=== PATIENT | female | born 1995 | race Two or more races ===

== ENCOUNTER 2024-05-07 21:26 | Emergency (ER) | payer MEDICAID, OTHER ==
[~2024-05-07] VITALS: Ht 167.6 cm; Wt 63.6 kg
[2024-05-07] MEDS: SODIUM CHLORIDE 0.9% 1,000 ML IV ONE (22:00)
--- NOTE | 2024-05-07 22:11 | ED.PDOC ---
History of Present Illness HPI Comments 28 year old female brought in by EMS presents to the ED with a chief complaint of overdose onset today. Per EMS, patient was found unconscious at home on bathroom floor, last seen well was about 15 minutes prior. EMS gave patient 2mg Narcan and about 5-10 minutes after patient was A&O x4. Patient states only drug used was marijuana. Per EMS, patient's sibling was also found unconsciousness with a foil containing Fentanyl. Denies any past medical history. Denies chest pain, shortness of breath, dizziness. No other symptoms or modifying factors present at this time. Patient denies any intent to hurt herself. Chief Complaint: Overdose Time Seen by MD: 21:56 Reviewed Notes: Medications, Allergies Allergies: Coded Allergies: NO KNOWN ALLERGIES (Unverified , 05/07/24) Home Meds Active Scripts Naloxone HCl (Narcan) 4 Mg/0.1 Ml Spr, 2 SPRAYS NA PRN PRN, #1 BOTTLE Prov:ALEX THAO MD 05/08/24 Cephalexin Monohydrate (Cephalexin) 500 Mg Cap, 1 CAP PO QID for 10 Days, #40 CAP Prov:ALEX THAO MD 05/08/24 Information Source: Patient, Emergency Med Personnel Mode of Arrival: EMS Severity: Moderate Timing: Hours Duration: Since onset Prehospital treatment: Other (Narcan 2mg ) Past Medical History PAST MEDICAL HISTORY: Denies Surgical History: Denies all surgeries PROP WORKER History: No Pertinent PROP WORKER History Family History Family History: Unknown Social History Smoker: Unknown Alcohol: Unknown Drugs: Marijuana, Other Lives In: Home Constitutional: denies: chills, diaphoresis, fatigue, fever, malaise, sweats, weakness, others EENTM: denies: blurred vision, double vision, ear bleeding, ear discharge, ear drainage, ear pain, ear ringing, eye pain, eye redness, hearing loss, mouth pain, mouth swelling, nasal discharge, nose bleeding, nose congestion, nose pain, photophobia, tearing, throat pain, throat swelling, voice changes, others Respiratory: denies: cough, hemoptysis, orthopnea, SOB at rest, shortness of breath, SOB with excertion, stridor, wheezing, others Cardiovascular: denies: chest pain, dizzy spells, diaphoresis, Dyspnea on exertion, edema, irregular heart beat, left arm pain, lightheadedness, palpitations, PND, syncope, others Gastrointestinal: denies: abdomen distended, abdominal pain, blood streaked bowels, constipated, diarrhea, dysphagia, difficulty swallowing, hematemesis, melena, nausea, poor appetite, poor fluid intake, rectal bleeding, rectal pain, vomiting, others Genitourinary: denies: abnormal vagina bleeding, burning, dyspareunia, dysuria, flank pain, frequency, hematuria, incontinence, pain, , vagina discharge, urgency, others Neurological: reports: fainting, others (overdose); denies: dizziness, headache, left sided numbness, left sided weakness, numbness, paresthesia, pre- existing deficit, right sided numbness, right sided weakness, seizure, speech problems, tingling, tremors, weakness Musculoskeletal: denies: back pain, gout, joint pain, joint swelling, muscle pain, muscle stiffness, neck pain, others Integumetry: denies: bruises, change in color, change in hair/nails, dryness, laceration, lesions, lumps, rash, wounds, others Allergic/Immunocompromised: denies: Difficulty Healing, Frequent Infections, Hives, Itching, others Hematologic/Lymphatic: denies: anemia, blood clots, easy bleeding, easy bruising, swollen glands, others Endocrine: denies: excessive hunger, excessive sweating, excessive thirst, excessive urination, flushing, intolerance to cold, intolerance to heat, unexplained weight gain, unexplained weight loss, others Psychiatric: denies: anxiety, bipolar disorder, depression, hopeless, panic disorder, schizophrenia, sleepless, suicidal, others All Other Systems: Reviewed and Negative Physical Exam General Appearance: No Apparent Distress HEENT: Other (Pupils symmetric, no facial asymmetry, moist mucous membranes.) Neck: Full Range of Motion, Non-Tender, Normal Inspection, Supple Respiratory: Lungs Clear, No Accessory Muscle Use, No Respiratory Distress, Normal Breath Sounds Cardiovascular: No Edema, No JVD, Regular Rate/Rhythm Breast Exam: Deferred Gastrointestinal: Non Tender, Soft Genitalia: Deferred Pelvic: Deferred Rectal: Deferred Extremities: Normal inspection, Normal range of motion, Non-tender, No pedal edema Neurologic: Alert (Oriented x4), Normal Affect, Normal Mood, Other (Moves all extremities with adequate strength and tone. No gross focal deficit.) Cerebellar Function: NOT DONE Reflexes: NOT DONE Skin: Dry, Normal Color, Warm Lymphatic: NOT DONE Was a procedure done? Was a procedure done?: No Differential Dx Considerations may include: Opiate overdose, syncope, seizure, alcohol overdose, among others X-Ray, Labs, Meds, VS Vital Signs Date Time Temp Pulse Resp B/P (MAP) Pulse Ox O2 Delivery O2 Flow Rate FiO2 05/08/24 00:00 91 05/07/24 23:41 95 16 96/55 (69) 96 05/07/24 23:36 96 16 100 Room Air* 0 21 05/07/24 22:25 98.8 102 20 95/59 (71) 100 98.8 05/07/24 21:33 97.2 108 14 140/91 (107) 97 Lab Test 05/07/24 23:05 05/07/24 22:04 Range/Units Urine Color Colorless Yellow Urine Clarity Turbid H Clear Urine pH 6.0 5.0-9.0 Urine Specific [place]dy 1.021 1.001-1.035 Urine Protein 1+ H Negative Urine Ketones Trace Negative Urine Blood Negative Negative /uL Urine Nitrite Negative Negative Urine Bilirubin Negative Negative Urine Urobilinogen Normal Negative mg/dL Urine Leukocyte Esterase 3+ Negative /uL Urine RBC 4 0 - 4 /hpf Urine WBC 19 0 - 5 /hpf Urine Squamous Epithelial Cells Mod <5 /hpf Urine Amorphous Crystals Few None Seen /hpf Urine Bacteria None seen None Seen /hpf Urine Mucus Few None Seen Urine Glucose 1+ H Normal mg/dL Urine Opiates Screen Neg NEGATIVE Urine Fentanyl Screen Pos NEGATIVE Urine Barbiturates Screen Neg NEGATIVE Urine Phencyclidine Screen Neg NEGATIVE Urine Amphetamines Screen Neg NEGATIVE Urine Benzodiazepines Screen Neg NEGATIVE Urine Cocaine Screen Neg NEGATIVE Urine Cannabinoids Screen Pos NEGATIVE White Blood Count 19.6 H 4.4-10.8 10^3/uL Red Blood Count 5.04 4.0-5.20 10^6/uL Hemoglobin 14.2 12.2-16.2 g/dL Hematocrit 43.7 36.0-46.0 % Mean Corpuscular Volume 86.7 80.0-100.0 fL Mean Corpuscular Hemoglobin 28.1 28.0-32.0 pg Mean Corpuscular Hemoglobin Concent 32.5 32.0-36.0 g/dL Red Cell Distribution Width 14.9 H 11.8-14.3 % Platelet Count 223 140-450 10^3/uL Mean Platelet Volume 9.7 6.9-10.8 fL Neutrophils (%) (Auto) 89.0 H 37.0-80.0 % Lymphocytes (%) (Auto) 4.0 L 10.0-50.0 % Monocytes (%) (Auto) 6.0 0.0-12.0 % Eosinophils (%) (Auto) 0.1 0.0-7.0 % Basophils (%) (Auto) 0.9 0.0-2.0 % Neutrophils # (Auto) 17.5 H 1.6-8.6 10 ^3/uL Lymphocytes # (Auto) 0.8 0.4-5.4 10 ^3/uL Monocytes # (Auto) 1.2 0-1.3 10 ^3/uL Eosinophils # (Auto) 0 0-0.8 10 ^3/uL Basophils # (Auto) 0.2 0-0.2 10 ^3/uL Nucleated Red Blood Cells 0.0 % Sodium Level 138 136-145 mmol/L Potassium Level 3.5 3.5-5.1 mmol/L Chloride Level 104 98-107 mmol/L Carbon Dioxide Level 27 20-31 mmol/L Anion Gap 7 5-15 Blood Urea Nitrogen 9 9-23 mg/dL Creatinine 0.92 0.550-1.02 mg/dL Glomerular Filtration Rate Calc 86 >90 mL/min BUN/Creatinine Ratio 9.8 L 10.0-20.0 Serum Glucose 150 H 74-106 mg/dL Calcium Level 9.6 8.7-10.4 mg/dL Total Bilirubin 0.3 0.2-1.0 mg/dL Aspartate Amino Transferase (AST) 61 H 13-40 U/L Alanine Aminotransferase (ALT) 28 7-40 U/L Alkaline Phosphatase 74 46-116 U/L Total Protein 7.4 5.7-8.2 g/dL Albumin 4.6 3.2-4.8 g/dL Beta HCG, Quantitative 0.3 L 1.5-4.2 mIU/mL Salicylates Level < 3.0 -30 mg/dL Acetaminophen Level < 2.0 L 10.0-20.0 UG/ML Plasma/Serum Blood Alcohol 3.2 <10 mg/dL Current Medications Medications (Trade) Dose Ordered Sig/Alena Route Start Time Stop Time Status Last Admin Ketorolac Tromethamine (Toradol Injection) 60 mg ONCE ONCE IM 05/07/24 23:15 05/07/24 23:16 DC 05/07/24 23:21 Ceftriaxone Sodium (Rocephin W Lidocaine IM) 1 gm ONCE ONCE IM 05/08/24 00:00 05/08/24 00:05 DC 05/08/24 00:00 X-Ray, Labs, Meds, VS Comment 29-year-old female with no significant past medical history brought in by EMS after a suspected opiate overdose. Patient was given Narcan IN by EMS which resolved her symptoms prior to arrival. Initial vitals remarkable for heart rate 108, BP 140/91 Exam unremarkable Rhythm strip independently interpreted by me: Sinus rhythm, rate 100, no ectopy. CBC, CMP, Tylenol, salicylate, hCG and alcohol levels unremarkable for any abnormality of acute significance. Urine drug screen positive for cannabinoids and fentanyl. UA abnormal consistent with UTI. Patient treated with the following in the ED: Toradol 60 mg IM for headache, Rocephin 1 g IM for treatment of UTI. On re-evaluation, patient was well-appearing, vitals were stable. Headache had improved. She was neurologically intact and in no respiratory distress. Hospitalization was considered, however patient remained stable during her stay in the ED, there was no evidence of [employer]OR or respiratory depression during her stay. She was observed for approximately 3 hours. She appears stable for discharge with close outpatient follow-up. Rx Narcan, Keflex Time of 1ST Reevaluation: 22:26 Reevaluation 1ST: Unchanged Time of 2ND Reevaluation: 00:35 Reevaluation 2ND: Improved Patient Education/Counseling: Diagnosis, Treatment, Need For Follow Up Family Education/Counseling: No Family Present Additional Information I reviewed the following notes from patient's past medical encounters: The following tests were ordered, and results were reviewed by me:, CBC, CMP, DRUG SCREEN, ACETAMINOPHEN, SALICYLATE, UA, BLOOD ALCOHOL, BETA HCG Additional Information was gathered from interviewing the following independent historians: EMS I discussed treatment and results with medical personnel and: patient Departure 1 Departure Time of Disposition: 00:35 Impression: Primary Impression: Accidental fentanyl overdose Qualified Codes: T40.411A - Poisoning by fentanyl or fentanyl analogs, accidental (unintentional), initial encounter Additional Impression: UTI (urinary tract infection) Qualified Codes: N39.0 - Urinary tract infection, site not specified Disposition: HOME / SELF CARE / HOMELESS Condition: Stable Additional Instructions: Your blood tests were unremarkable. Your urine test showed you have a urinary tract infection. Your urine drug screen was positive for marijuana and fentanyl. I have prescribed antibiotics for your urinary tract infection and Narcan, the reversal agent for accidental fentanyl overdose. Follow-up with your primary doctor in 1-2 days. Stop using fentanyl. It can kill you. e-Prescriptions Naloxone HCl (Narcan) 4 Mg/0.1 Ml Spr 2 SPRAYS NA PRN PRN, #1 BOTTLE Prov: ALEX THAO MD 05/08/24 Cephalexin Monohydrate (Cephalexin) 500 Mg Cap 1 CAP PO QID for 10 Days, #40 CAP Prov: ALEX THAO MD 05/08/24 Discharged With: Self Critical Care Note Critical Care Time?: No Stability Stability form required: No Heart Score Heart Score: Heart Score Response (Comments) Value History N/A 0 EKG N/A 0 Age N/A 0 Risk Factors N/A 0 Troponin N/A 0 Total 0 I personally scribed for ALEX THAO MD ([email or web address]) on 05/07/24 at 22:10. Electronically submitted by Sendy Hernandez ([email or web address]). I personally scribed for ALEX THAO MD ([email or web address]) on 05/07/24 at 22:28. Electronically submitted by Sendy Hernandez ([email or web address]). I personally scribed for ALEX THAO MD ([email or web address]) on 05/07/24 at 23:03. Electronically submitted by Sendy Hernandez ([email or web address]). ALEX THAO MD May 07, 2024 22:10
[2024-05-07 22:18] LABS: Basophils # (auto) 0.2 10 ^3/uL (0-0.2); Basophils % (auto) 0.9 % (0.0-2.0); Eosinophils # (auto) 0 10 ^3/uL (0-0.8); Eosinophils % (auto) 0.1 % (0.0-7.0); Hematocrit 43.7 % (36.0-46.0); Hemoglobin 14.2 g/dL (12.2-16.2); Lymphocytes # (auto) 0.8 10 ^3/uL (0.4-5.4); Mean Corpuscular Hemoglobin 28.1 pg (28.0-32.0); Mean Corpuscular Hgb Conc. 32.5 g/dL (32.0-36.0); Mean Corpuscular Volume 86.7 fL (80.0-100.0); Monocytes # (auto) 1.2 10 ^3/uL (0-1.3); Neutrophils # (auto) 17.5 10 ^3/uL (1.6-8.6); Platelet Count (auto) 223 10^3/uL (140-450); Red Blood Cells 5.04 10^6/uL (4.0-5.20); Red Cell Distribution Width 14.9 % (11.8-14.3); White Blood Cell 19.6 10^3/uL (4.4-10.8)
[2024-05-07 22:25] VITALS: TEMP 98.8
[2024-05-07 22:44] LABS: Alanine Aminotransferase 28 U/L (7-40); Albumin 4.6 g/dL (3.2-4.8); Alkaline Phosphatase 74 U/L (46-116); Anion Gap 7 (5-15); BUN/Creatinine Ratio 9.8 (10.0-20.0); Blood Alcohol 3.2 mg/dL (<10); Calcium 9.6 mg/dL (8.7-10.4); Carbon Dioxide 27 mmol/L (20-31); Chloride 104 mmol/L (98-107); Potassium 3.5 mmol/L (3.5-5.1); Sodium 138 mmol/L (136-145)
[2024-05-07 22:45] LABS: Bilirubin, Total 0.3 mg/dL (0.2-1.0); Total Protein 7.4 g/dL (5.7-8.2)
[2024-05-07 22:49] LABS: Aspartate Aminotransferase 61 U/L (13-40); Blood Urea Nitrogen 9 mg/dL (9-23); Glucose 150 mg/dL (74-106)
[2024-05-07 23:03] LABS: Acetaminophen < 2.0 UG/ML (10.0-20.0); Salicylate < 3.0 mg/dL (-30)
[2024-05-07 23:20] LABS: Urine Bacteria None Seen /hpf (None Seen)
[2024-05-07] MEDS: KETOROLAC TROMETH 60MG/2ML VIAL IM ONE (23:21)
[2024-05-07 23:36] VITALS: PULSE 96; RESP 16; O2SAT 100
[2024-05-07 23:41] VITALS: BP 96/55; RESP 16; O2SAT 96
[2024-05-07 23:41] LABS: Amphetamine Screen, Urine Neg (NEGATIVE); Cannabinoid Screen, Urine Pos (NEGATIVE); Cocaine Screen, Urine Neg (NEGATIVE)
[2024-05-07 23:44] LABS: Barbiturate Scree,Urine Neg (NEGATIVE); Benzodiazephine Screen, Urine Neg (NEGATIVE); Opiate Scree,Urine Neg (NEGATIVE); Phencyclidine Screen, Urine Neg (NEGATIVE)
[2024-05-07 23:49] LABS: Urine Amorphous Crystal FEW /hpf (None Seen); Urine Blood Negative /uL (Negative); Urine Clarity Turbid (Clear); Urine Color Colorless (Yellow); Urine Mucus FEW (None Seen); Urine Protein, UAD 1+ (Negative); Urine Specific Gravity 1.021 (1.001-1.035); Urine Squamous Epithelial Cell MOD /hpf (<5); Urine Urobilinogen Normal (Negative); Urine WBC 19 /hpf (0 - 5)
[2024-05-08] VITALS: PULSE 91
[2024-05-08] MEDS: cefTRIAXone W LIDOCAINE 1 GM IM IM ONE ×2 (00:52)
[2024-05-08] MEDS: cefTRIAXone SOD 1,000 MG VL ONE (00:53)
[2024-05-08] MEDS ORDERED: CEPH500C PO (01:23)
[2024-05-08] MEDS ORDERED: NALO4SPR2 (01:23)
== END 2024-05-08 01:35 | disposition home or self-care (01) ==
LOC: EDBD 21:26 → ER 21:26
DX: T40.411A Poisoning by fentanyl or fentanyl analogs, accidental (unintentional), initial encounter (principal); N39.0 Urinary tract infection, site not specified; F15.90 Other stimulant use, unspecified, uncomplicated; Z79.899 Other long term (current) drug therapy; Y92.89 Other specified places as the place of occurrence of the external cause
CPT/HCPCS: 36415; 80053; 80307; 80320; 80329; 81001; 84702; 85025; 96372; 99284; J0696; J1885